=== PATIENT | female | born 1940 | race Caucasian/White ===

== ENCOUNTER 2017-03-20 22:11 | Inpatient (IN) | payer MEDICARE, BC ==
[2017-03-20] MEDS ORDERED: SODIUM CHLORIDE 0.9% 1,000 ML IV STA (22:44)
[2017-03-20] MEDS ORDERED: HYDROmorphone 2 MG/ML 1 ML SYRINGE IVP STA (22:45)
--- NOTE | 2017-03-20 22:56 | ED ---
General Adult HPI - General Chief complaint: Extremity Injury, Lower Stated complaint: Hip Fx Time Seen by Provider: 03/20/17 22:26 Source: patient, EMS, RN notes reviewed Mode of arrival: EMS Limitations: physical limitation - History of Present Illness Initial comments: Chief complaint and history of present illness this is a 76-year-old female except as a transfer from [facility]. The patient was at that facility in the ER earlier. She had fallen at home. X-rays were done including CAT scans etc. the patient was transferred here for further evaluation by orthopedics. Dr. Perry accepted the patient for evaluation and management for left hip fracture. - Related Data Allergies Allergy/AdvReac Type Severity Reaction Status Date / Time clarithromycin [From Biaxin] Allergy Unknown Verified 03/20/17 22:26 Iodinated Contrast- Oral and Allergy Unknown Verified 03/20/17 22:26 IV Dye Penicillins Allergy Unknown Verified 03/20/17 22:26 Review of Systems ROS Statement: Those systems with pertinent positive or pertinent negative responses have been documented in the HPI. review of systems. Patient's denying any headache or visual acuity changes no chest pain or shortness of breath she has discomfort to her left hip. For which she'll receive IV Dilaudid. No nausea no vomiting no diarrhea. She is alert and oriented. Past medical problems significant for hypertension and a DVT years ago she is not on any blood thinners this time. Her surgeries include previous hernia repair, cataract and cholecystectomy. Family history noncontributory. Nonsmoker non-alcohol user. Patient reports ALLERGIES to clarithromycin, eyes any contrast oral and IV dye and penicillins. ROS Other: All systems not noted in ROS Statement are negative. Past Medical History Past Medical History: Hypertension Additional Past Medical History / Comment(s): dvt History of Any Multi-Drug Resistant Organisms: None Reported Past Surgical History: Cholecystectomy, Hernia Repair Additional Past Surgical History / Comment(s): cataract Past Psychological History: Depression Smoking Status: Never smoker Past Alcohol Use History: None Reported Past Drug Use History: None Reported General Exam - General Exam Comments Initial Comments: General: The patient is awake and alert, transferred here from another facility because of a fractured left hip. Vital signs here show temperature 98.8 pulse 102 respiratory rate 18 pulse ox 90% room air blood pressure 192/88. All be given pain medication. Eye: Pupils are equal, round and reactive to light, extra-ocular movements are intact ; there is normal conjunctiva bilaterally. No signs of icterus. history of cataract surgery. Ears, nose, mouth and throat: patient states she's thirsty. She will be allowed to eat and drink until midnight. Neck: The neck is supple, no neck pain, no headache. Cardiovascular: There is a regular rate and rhythm. No murmur, rub or gallop is appreciated. Respiratory: Lungs are clear to auscultation, respirations are non-labored, breath sounds are equal. No wheezes, stridor, rales, or rhonchi. Gastrointestinal: Soft, non-distended, non-tender abdomen without masses or organomegaly noted. There is no rebound or guarding present. No CVA tenderness. Bowel sounds are unremarkable. Back: patient denies back pain. Musculoskeletal: neurovascular status to the feet intact. The patient has a known left hip fracture. Evaluated at another emergency room. X-rays and CAT scans performed at that facility of being bloated this time. Neurological: no focal or lateralizing findings. Skin: Skin is warm and dry and no rashes or lesions are noted. Psychiatric: Cooperative, denies depression. Limitations: physical limitation Course Vital Signs 03/20/17 03/20/17 22:17 23:19 Temperature 98.8 F Pulse Rate 102 H 98 Respiratory 18 16 Rate Blood Pressure 194/88 184/86 O2 Sat by Pulse 98 96 Oximetry Medical Decision Making - Medical Decision Making medical decision making; this is a 76-year-old female who is transferred from another facility because of a fractured left hip. She was accepted to this Hospital for further evaluation and management of the hip fracture by Dr. Perry.Labs show white count of 12 hemoglobin 12 hematocrit of 40. INR 1.1, BUN 13 creatinine 0.7 with a GFR greater than 60. Potassium is 4.1. Glucose 131. - Lab Data Result diagrams: 03/20/17 23:19 03/20/17 23:19 Lab Results 03/20/17 03/20/17 03/20/17 Range/Units 23:19 23:19 23:19 WBC 12.2 H (3.8-10.6) k/uL RBC 4.46 (3.80-5.40) m/uL Hgb 12.4 (11.4-16.0) gm/dL Hct 40.4 (34.0-46.0) % MCV 90.5 (80.0-100.0) fL MCH 27.8 (25.0-35.0) pg MCHC 30.7 L (31.0-37.0) g/dL RDW 15.3 (11.5-15.5) % Plt Count 160 (150-450) k/uL Neutrophils % 90 % Lymphocytes % 5 % Monocytes % 4 % Eosinophils % 0 % Basophils % 0 % Neutrophils # 11.0 H (1.3-7.7) k/uL Lymphocytes # 0.6 L (1.0-4.8) k/uL Monocytes # 0.5 (0-1.0) k/uL Eosinophils # 0.0 (0-0.7) k/uL Basophils # 0.0 (0-0.2) k/uL PT 10.5 (9.0-12.0) sec INR 1.1 (<1.2) Sodium 138 (137-145) mmol/L Potassium 4.1 (3.5-5.1) mmol/L Chloride 102 (98-107) mmol/L Carbon Dioxide 22 (22-30) mmol/L Anion Gap 14 mmol/L BUN 13 (7-17) mg/dL Creatinine 0.70 (0.52-1.04) mg/dL Est GFR (MDRD) Af Amer >60 (>60 ml/min/1.73 sqM) Est GFR (MDRD) Non-Af >60 (>60 ml/min/1.73 sqM) Glucose 131 H (74-99) mg/dL Calcium 9.1 (8.4-10.2) mg/dL Total Bilirubin 0.6 (0.2-1.3) mg/dL AST 49 H (14-36) U/L ALT 38 (9-52) U/L Alkaline Phosphatase 65 (38-126) U/L Total Protein 6.7 (6.3-8.2) g/dL Albumin 3.8 (3.5-5.0) g/dL Disposition Clinical Impression: Closed left hip fracture Disposition: ADMITTED IP TO THIS HOSP Condition: Serious Referrals: Tariq Parra MD [Primary Care Provider] - 1-2 days
[2017-03-20 23:29] LABS: Basophils % (A) 0 %; Eosinophils % (A) 0 %; HCT 40.4 % (34.0-46.0); HGB 12.4 gm/dL (11.4-16.0); Lymphocytes # (A) 0.6 k/uL (1.0-4.8); Lymphocytes % (A) 5 %; MCH 27.8 pg (25.0-35.0); MCHC 30.7 g/dL (31.0-37.0); MCV 90.5 fL (80.0-100.0); Mean Platelet Volume 7.3; Monocytes # (A) 0.5 k/uL (0-1.0); Monocytes % (A) 4 %; Neutrophils % (A) 90 %; Platelet Count 160 k/uL (150-450); RBC 4.46 m/uL (3.80-5.40); RDW 15.3 % (11.5-15.5); WBC 12.2 k/uL (3.8-10.6)
[2017-03-20 23:36] LABS: INR 1.1 (<1.2); Prothrombin Time 10.5 sec (9.0-12.0)
[2017-03-20 23:46] LABS: ALT 38 U/L (9-52); AST 49 U/L (14-36); Albumin 3.8 g/dL (3.5-5.0); Alkaline Phosphatase 65 U/L (38-126); Anion Gap 14 mmol/L; Blood Urea Nitrogen 13 mg/dL (7-17); Calcium 9.1 mg/dL (8.4-10.2); Carbon Dioxide 22 mmol/L (22-30); Chloride 102 mmol/L (98-107); Glucose 131 mg/dL (74-99); Potassium 4.1 mmol/L (3.5-5.1); Sodium 138 mmol/L (137-145); Total Bilirubin 0.6 mg/dL (0.2-1.3); Total Protein 6.7 g/dL (6.3-8.2)
[2017-03-21] MEDS ORDERED: NALOXONE 0.4 MG/ML 1 ML VIAL IV PRN (00:21)
[2017-03-21] MEDS ORDERED: ONDANSETRON 4 MG/2 ML VIAL IVP PRN ×2 (00:21→15:34)
[2017-03-21] MEDS: HYDROmorphone 0.5 MG/0.5 ML SYRINGE IVP PRN ×6 (01:11→22:25)
[2017-03-21 02:17] VITALS: BMI 25.0
[2017-03-21] MEDS ORDERED: PERMETHRIN 5% CREAM 60 GM TUBE TOPICAL ONE (03:18)
[2017-03-21] MEDS: SODIUM CHLORIDE 0.9% 1,000 ML IV SCH ×2 (03:20→18:13)
[2017-03-21] MEDS: PANTOPRAZOLE 40 MG/10 ML VIAL IV SCH (09:00)
[2017-03-21] MEDS ORDERED: LORazepam 2 MG/ML INJ IV SCH (09:00)
--- NOTE | 2017-03-21 09:40 | XR ---
EXAMINATION TYPE: XR Hip Complete LT , 3 VIEWS DATE OF EXAM ORDERED: 03/21/2017 HISTORY: hip fracture. COMPARISON: None. FINDINGS: There is an intertrochanteric fracture of the left hip with moderate angulation and foresh ortening. IMPRESSION: INTERTROCHANTERIC FRACTURE OF THE LEFT HIP. CODE A: INITIAL ENCOUNTER FOR CLOSED FRACTURE.
--- NOTE | 2017-03-21 10:51 | P.HPOR ---
History of Present Illness H&P Date: 03/21/17 Chief Complaint: Left hip fracture Patient is a 76-year-old female who was transferred down from [facility] to [facility] on 03/20/2017. Patient is currently staying at her daughter's house, and she went on to the garage to grab something out of the fridge when she tripped over a step and fell directly onto that left hip. The family did find her, and she was brought to [facility] initially. I was contacted by Gabbieserjio Dougherty's emergency room physician regarding the possible transfer, we did accept the transfer. Patient was then admitted under orthopedic care with proper specialties consult. Patient was evaluated today at bedside, she was rather agitated and was difficult to achieve a review of systems and past medical history. I was able to talk to the daughter today at bedside and she helped confirm further questions. Patient's daughter states that she normally lives alone, but has been with her the last week and a half. Patient does have a lot of family in the area that does check up on her. She states that she has rather mobile, she does utilize a cane or a walker when out of the house. There's been no recent surgery on the left lower extremity. Patient is a relatively healthy individual. There is a history of factor V Leiden disease, she does not currently see crts. She does have a primary care doctor she is on a regular basis, and does see a crts and Bobo Dougehrty on a regular basis. At bedside today, patient does complain of pain in the left hip with any type of motion. She denies any pain of the right lower extremity, bilateral upper extremities. She denies any new onset cervical, thoracic or lumbar pain. There is a bruise over the left eyelid, daughter states this is from the fall. She did have a computed tomography scan done of the head and neck with showed no acute processes. Review of Systems Constitutional: Reports as per HPI Past Medical History Past Medical History: Deep Vein Thrombosis (DVT), Hypertension Additional Past Medical History / Comment(s): dvt History of Any Multi-Drug Resistant Organisms: None Reported Past Surgical History: Cholecystectomy, Hernia Repair Additional Past Surgical History / Comment(s): cataract Past Psychological History: Depression Smoking Status: Never smoker Past Alcohol Use History: None Reported Past Drug Use History: None Reported Medications and Allergies Home Medications Medication Instructions Recorded Confirmed Type Colon Health 1 cap PO W/LUNCH 03/21/17 03/21/17 History Echinacea 400 mg PO BID@1200,1700 03/21/17 03/21/17 History Fexofenadine HCl [Patricia Allergy] 180 mg PO HS 03/21/17 03/21/17 History LORazepam [Ativan] 1 mg PO TID 03/21/17 03/21/17 History Olmesartan [Benicar] 20 mg PO W/BRKFST 03/21/17 03/21/17 History Omeprazole [PriLOSEC] 20 mg PO W/BRKFST 03/21/17 03/21/17 History Sertraline [Zoloft] 100 mg PO AC-BID 03/21/17 03/21/17 History busPIRone HCl [Buspar] 5 mg PO W/LUNCH 03/21/17 03/21/17 History Allergies Allergy/AdvReac Type Severity Reaction Status Date / Time clarithromycin [From Biaxin] Allergy Unknown Verified 03/20/17 22:26 Iodinated Contrast- Oral and Allergy Unknown Verified 03/20/17 22:26 IV Dye Penicillins Allergy Unknown Verified 03/20/17 22:26 Physical Examination Left lower extremity: No obvious open lesions or sores present. There are a few areas of ecchymosis noted over the knee and mac no obvious effusion present over the knee, no significant tenderness with palpation surrounding the knee The calf is soft, no tenderness with palpation She is able to wiggle the toes no difficulty, her dorsal pedis pulses 2+ Logroll maneuver the hip reproduces pain, she is tender over the greater trochanter with palpation Gen. exam: Patient was noted to have multiple skin lesions throughout her torso and extremities, please see the chart for picture and verbal description Results - Labs Labs: Abnormal Lab Results - Last 24 Hours (Table) 03/20/17 03/20/17 Range/Units 23:19 23:19 WBC 12.2 H (3.8-10.6) k/uL MCHC 30.7 L (31.0-37.0) g/dL Neutrophils # 11.0 H (1.3-7.7) k/uL Lymphocytes # 0.6 L (1.0-4.8) k/uL Glucose 131 H (74-99) mg/dL AST 49 H (14-36) U/L H & H 03/20/17 Range/Units 23:19 Hgb 12.4 (11.4-16.0) gm/dL Hct 40.4 (34.0-46.0) % Coagulation 03/20/17 Range/Units 23:19 INR 1.1 (<1.2) Result Diagrams: 03/20/17 23:19 03/20/17 23:19 - Diagnostic results Hip x-ray: report reviewed, image reviewed Assessment and Plan Plan: Imaging: Patient did arrive with a CD with multiple images, there was a CT without contrast of the hip and pelvis, there were no x-rays. I did order a x- ray of the left hip, images demonstrate a severely displaced left intertrochanteric hip fracture Assessment: 1. Displaced left intertrochanteric hip fracture 2. Status post fall from standing 3. Other medical comorbidities Plan: I was able to discuss this case, including both physical exam findings and imaging studies with Dr. Lofton my attending. Our plan at this point is to proceed with surgical intervention, we would like to do this on 03/21/2017. Plan will be to proceed with an open reduction internal fixation with compression screw, there is the possibility of doing a closed reduction with intramedullary nailing. The risk and benefits of the procedure were discussed the patient and daughter today, this including but not excluding infection, blood loss, pain and stiffness, development of blood clots, need for subsequent surgery, mortality. They're in good understanding and would like to proceed Nothing by mouth Nonweightbearing left lower extremity GI and DVT prophylaxis, we'll discuss with medicine proper medication use after surgery, we'll take any consideration or factor V disease Medical clearance Pain control Further recommendations to follow Time with Patient: Less than 30
[2017-03-21] MEDS ORDERED: HYDROmorphone 0.5 MG/0.5 ML SYRINGE IVP STA (13:13)
[2017-03-21] MEDS: ACETAMINOPHEN IV (For NPO) 1,000 MG in EMPTY BAG 1 BAG IVPB SCH ×2 (13:17→20:05)
[2017-03-21 13:51] LABS: Appearance,Urine Clear (Clear); Bilirubin,Urine Negative (Negative); Blood,Urine Small (Negative); Color,Urine Yellow; Glucose,Urine (UA) Negative (Negative); Ketones,Urine Negative (Negative); Leukocyte Esterase,Urine Negative (Negative); Mucus,Urine Few /hpf; Nitrite,Urine Negative (Negative); PH, Urine 5.5 (5.0-8.0); Protein,Urine Trace (Negative); RBC,Urine 3 /hpf (0-5); Specific Gravity,Urine 1.018 (1.001-1.035); Urobilinogen,Urine <2.0 mg/dL (<2.0); WBC,Urine 2 /hpf (0-5)
[2017-03-21] MEDS ORDERED: PHENYLEPHRINE-0.9% NACL SYG 1 MG/10 ML SYRINGE ONE (14:28)
[2017-03-21] MEDS ORDERED: KETAMINE 10 MG/ML 20 ML VIAL ONE (14:28)
--- NOTE | 2017-03-21 14:34 | XR ---
EXAMINATION TYPE: XR chest 1V portable DATE OF EXAM: 03/21/2017 COMPARISON: None INDICATION: Presurgical clearance TECHNIQUE: Single frontal view of the chest is obtained. FINDINGS: The heart size is normal. The pulmonary vasculature is normal. The lungs are clear. IMPRESSION: 1. No acute pulmonary process.
[2017-03-21] MEDS ORDERED: IV FLUID CONTINUATION 900 ML IV ONE (14:50)
[2017-03-21] MEDS ORDERED: CLINDAMYCIN 600 MG in SODIUM CHLORIDE 0.9% 1,000 ML IRRIGATION ONE (14:50)
[2017-03-21] MEDS ORDERED: SODIUM CHLORIDE 0.9% 50 ML with CLINDAMYCIN 600 MG IVPB ONE ×2 (14:51)
--- NOTE | 2017-03-21 14:57 | CONS ---
CONSULTATION REASON FOR CONSULTATION: Advice regarding hypertension, DVT, and other medical issues requested by Dr. Lofton. HISTORY OF PRESENT ILLNESS: This 76-year-old woman with a past history of DVT, hypertension, history of cholecystectomy, hernia repair being followed by Dr. Parra in the outpatient setting apparently had a fall and suffered a left hip fracture. The patient was referred to [facility]. patient admitted for further evaluation and treatment. There is no history of fever, rigors. No headache, loss of consciousness or seizures. The patient was noted to have some suicidal ideations. Psychiatric consultation has been obtained. The patient running some minimal fever. Chest x-ray showed no acute abnormality. UA is unremarkable as well. PAST MEDICAL HISTORY: History of DVT, hypertension, history of cholecystectomy, hernia repair. MEDICATIONS PRIOR TO ADMISSION: 1. Fexofenadine, Patricia 180 mg q.h.s. 2. BuSpar 5 mg p.o. with lunch. 3. Echinacea 400 mg p.o. b.i.d. 4. Colon Health 1 with lunch. 5. Prilosec 20 mg with breakfast. 6. Benicar 20 mg with breakfast. 7. Ativan 1 mg p.o. t.i.d. 8. Zoloft 100 mg p.o. b.i.d. ALLERGIES: CLARITHROMYCIN, IODINATED CONTRAST, METHYLPREDNISONE, ZOFRAN AND PENICILLIN. FAMILY HISTORY: No history of heart disease or strokes family. SOCIAL HISTORY: No history of smoking, no history of alcohol. REVIEW OF SYSTEMS: ENT: No diminished hearing or vision. CARDIOVASCULAR: No angina or palpitations. RESPIRATORY: No cough or hemoptysis. GI: No nausea. : No dysuria. NERVOUS SYSTEM: No numbness or tingling. ALLERGY/IMMUNOLOGY: No asthma or hayfever. MUSCULOSKELETAL: As mentioned earlier. HEMATOLOGY/ONCOLOGY: No history of anemia. ENDOCRINE: No history of diabetes or hypothyroidism. CONSTITUTIONAL As mentioned earlier. DERMATOLOGY: Negative. RHEUMATOLOGY: Negative. PSYCHIATRY As mentioned earlier. EXAMINATION: Alert, oriented x3. Pulse 87, blood pressure 170/75, respiration 20, temperature 98.9, pulse ox 94% room air. HEENT: Conjunctivae normal. Oral mucosa moist. NECK: No jugular venous distention. No lymph node enlargement. CARDIOVASCULAR: S1, S2. RESPIRATORY: Breath sounds diminished in the bases. A few rhonchi, no crackles. ABDOMEN: Soft, nontender. No mass palpable. LEGS: No edema, no swelling. NERVOUS SYSTEM: Higher functions as mentioned earlier, moves all 4 limbs, no focal motor deficits. LYMPHATICS: No lymphadenopathy in the neck, axillae or groin. SKIN: No ulcers, rash, bleeding. LAB STUDIES: WBC 12, hemoglobin 12.4. UA noted. ASSESSMENT: 1. Status post left hip fracture. 2. Increased WBC. 3. Possibly reactive. 4. History of DVT. 5. Hypertension. 6. History of cholecystectomy. 7. History of hernia repair. 8. History of depression. RECOMMENDATIONS AND DISCUSSION: In this 76-year-old woman who presented with multiple complex medical issues, will monitor the patient closely. Continue the current management and symptomatic treatment. Will initiate home medications. Incentive spirometry. Patient is medically stable for surgery. Cleared for surgery. I would also recommend empiric antibiotics. DVT prophylaxis. We will follow the patient closely and psychiatric consultation has been sought. The patient may be asked to follow with Dr. Parra, who is the primary physician. We will follow the patient closely. Thank you Dr. Lofton, for letting us participate in the care. MMODL / IJN: [id number] /
[2017-03-21] MEDS ORDERED: LEVOFLOXACIN 500MG-D5W PMX 500 MG in DEXTROSE/WATER 1 100ML.BAG IVPB SCH (15:00)
[2017-03-21] MEDS ORDERED: HYDROcodone/APAP 5-325MG 1 EACH TAB PO PRN ×2 (15:34)
[2017-03-21] MEDS ORDERED: MAGNESIUM HYDROXIDE 2,400 MG/10 ML CUP PO PRN (15:34)
--- NOTE | 2017-03-21 15:36 | P.OP ---
Date of Procedure: 03/21/17 Preoperative Diagnosis: Displaced left intertrochanteric femur fracture Postoperative Diagnosis: Same Procedure(s) Performed: Open reduction and internal fixation left intertrochanteric femur fracture Implants: Gurpreet free lock 135, 3-hole, 100 mm compression screw Anesthesia: spinal Surgeon: Mark Lofton [employer]1: Fabrice Mac Estimated Blood Loss (ml): 25 Pathology: none sent Condition: stable Disposition: PACU Indications for Procedure: The patient is a 76-year-old female who presents after falling injuring her left hip. Upon evaluation she was noted have a displaced left intertrochanteric femur fracture. A discussion of the risks and benefits of operative intervention was made with patient and her family. She opted to proceed. Operative risks to include infection, neurovascular injury, development of blood clots, possible development of nonunion, possible development of malunion and need for subtotal procedures was discussed. Informed consent was obtained. Operative Findings: As below Description of Procedure: The patient was brought to the operating room, and after induction of spinal anesthesia was placed supine on the fracture table. The fracture was reduced with longitudinal traction and internal rotation of the left leg. This was verified on the AP and lateral views with fluoroscopy. The left hip was then prepped and draped in normal fashion. A 10 cm incision was then made starting distal to the greater trochanter in line with the femoral shaft. The skin and subcutaneous tissues were divided sharply. Electrocautery was used for hemostasis. The fascia gregory was split in line with the skin incision. The vastus lateralis fascia was split along its posterior margins. The muscle fibers were bluntly dissected anteriorly. A threaded guidepin was then placed into the center-center portion of the femoral head and neck verified on the AP and lateral views to within 5 mm of the articular surface. A triple reamer was used to a depth of 100 mm. A 100 mm compression screw was then inserted. Again positioning was verified with fluoroscopy on the AP and lateral views. A 3 hole compression plate was then attached with 4.5 mm cortical screws of the appropriate length. A short compression screw was inserted in the traction was released. Final fluoroscopic views to include AP and lateral views showed adequate placement of the implant and reduction of the fracture. The wound was irrigated with normal saline. The fascia gregory was closed with running 0 Vicryl suture. Subcutaneous tissues were reapproximated with interrupted 2-0 Vicryl sutures. The skin was reapproximated with julio. A sterile dressing was applied. The patient was awoken from sedation and transferred to recovery room in fair condition. Blood loss was estimated at 25 mL. No complications were incurred. Sponge and needle counts were correct at the end of the case.
--- NOTE | 2017-03-21 16:19 | FL ---
Fluoroscopy INDICATION: Pain FINDINGS: Fluoroscopy time: 40 seconds. Images obtained: 2. IMPRESSIONS: 1. Documentation of fluoroscopy.
[2017-03-21] MEDS ORDERED: ECHINACEA 400 MG PO SCH (17:00)
[2017-03-21] MEDS: HEPARIN SODIUM,PORCINE 5,000 UNIT/ML 1 ML VIAL SQ SCH ×2 (17:47→22:21)
[2017-03-21] MEDS: LORazepam 1 MG TAB PO SCH ×2 (18:13→22:21)
[2017-03-21] MEDS ORDERED: OPTH OPHTHALMIC ONE (18:45)
[2017-03-21] MEDS ORDERED: DORZOLAMIDE 2% OPHTHALMIC ONE (18:45)
[2017-03-21] MEDS: CLINDAMYCIN 900 MG in DEXTROSE 5% IN WATER 50 ML IVPB SCH ×2 (22:17)
[2017-03-21] MEDS: LORATADINE 10 MG TAB PO SCH (22:21)
[2017-03-21] MEDS: SERTRALINE 100 MG TAB PO SCH (22:21)
[2017-03-21] MEDS: SENNOSIDES-DOCUSATE SODIUM 1 EACH TAB PO SCH (22:22)
[2017-03-22] MEDS: SODIUM CHLORIDE 0.9% 1,000 ML IV SCH ×2 (01:40→14:31)
[2017-03-22] MEDS: CLINDAMYCIN 900 MG in DEXTROSE 5% IN WATER 50 ML IVPB SCH ×2 (03:04)
[2017-03-22 06:55] LABS: Basophils % (A) 0 %; Eosinophils # (A) 0.3 k/uL (0-0.7); Eosinophils % (A) 4 %; HCT 38.5 % (34.0-46.0); HGB 11.6 gm/dL (11.4-16.0); Hypochromasia Slight; Lymphocytes # (A) 0.5 k/uL (1.0-4.8); Lymphocytes % (A) 7 %; MCH 27.9 pg (25.0-35.0); Mean Platelet Volume 7.2; Monocytes # (A) 0.4 k/uL (0-1.0); Monocytes % (A) 6 %; Neutrophils % (A) 82 %; Platelet Count 122 k/uL (150-450); RBC 4.14 m/uL (3.80-5.40); RDW 15.4 % (11.5-15.5); WBC 7.3 k/uL (3.8-10.6)
[2017-03-22] MEDS: HYDROmorphone 0.5 MG/0.5 ML SYRINGE IVP PRN ×3 (07:04→19:52)
[2017-03-22] MEDS: traMADol 50 MG TAB PO PRN ×3 (07:05→19:52)
[2017-03-22 07:28] LABS: Anion Gap 9 mmol/L; Blood Urea Nitrogen 18 mg/dL (7-17); Calcium 8.1 mg/dL (8.4-10.2); Carbon Dioxide 22 mmol/L (22-30); Chloride 105 mmol/L (98-107); Glucose 104 mg/dL (74-99); Potassium 4.1 mmol/L (3.5-5.1); Sodium 136 mmol/L (137-145)
[2017-03-22] MEDS ORDERED: PANTOPRAZOLE 40 MG TABLET PO SCH (07:30)
[2017-03-22] MEDS: SERTRALINE 100 MG TAB PO SCH ×2 (08:15→17:06)
[2017-03-22] MEDS: LOSARTAN 50 MG TAB PO SCH (08:15)
[2017-03-22] MEDS: HEPARIN SODIUM,PORCINE 5,000 UNIT/ML 1 ML VIAL SQ SCH ×2 (08:19→22:27)
[2017-03-22] MEDS: PANTOPRAZOLE 40 MG/10 ML VIAL IV SCH (08:19)
[2017-03-22] MEDS: LORazepam 1 MG TAB PO SCH ×3 (08:40→22:27)
[2017-03-22] MEDS ORDERED: HYDROcodone/APAP 7.5-325MG 1 EACH TAB PO PRN (10:08)
[2017-03-22] MEDS: busPIRone HCl 5 MG TAB PO SCH (12:50)
--- NOTE | 2017-03-22 15:25 | P.PN ---
Subjective Progress Note Date: 03/22/17 Principal diagnosis: Status post ORIF left IT hip fracture Patient seen today resting in her hospital bed, she appears comfortable. She has multiple family members at bedside today. She was able to get up to the chair and ambulate minimally, she did have some increasing pain. She denies any headaches, lightheadedness, chest pain or shortness of breath. Objective - Vital Signs Vital signs: Vital Signs Temp 100.9 F H 03/22/17 08:42 Pulse 95 03/22/17 08:42 Resp 16 03/22/17 08:42 BP 124/67 03/22/17 08:42 Pulse Ox 95 03/22/17 08:42 Intake & Output 03/21/17 03/22/17 03/22/17 18:59 06:59 18:59 Intake Total 1195.5 603 Output Total 350 650 Balance 845.5 -47 Weight 72.575 kg Intake: IV 555.5 Intake, IV Titration 640 603 Amount Sodium Chloride 0.9% 1, 300 000 ml @ 75 mls/hr IV . [id number] STA Rx#:[id number] Sodium Chloride 0.9% 1, 640 303 000 ml @ 80 mls/hr IV . [id number] AMRITA Rx#:[id number] Output: Urine 325 650 Estimated Blood Loss 25 Other: Voiding Method Indwelling Catheter Indwelling Catheter Indwelling Catheter - Exam Left lower extremity: Incision is clean, dry, and intact. Torito are in good position. There is minimal soft tissue swelling and ecchymosis surrounding the medial and lateral aspects of the incision. Calf is soft, no tenderness with palpation. Plantar flexion, dorsiflexion, EHL, FHL are intact. Sensory exam to light touch throughout the extremity is intact, dorsal pedis pulses 2+. - Labs CBC & Chem 7: 03/22/17 06:34 03/22/17 06:34 Labs: Abnormal Lab Results - Last 24 Hours (Table) 03/22/17 03/22/17 Range/Units 06:34 06:34 MCHC 30.0 L (31.0-37.0) g/dL Plt Count 122 L (150-450) k/uL Lymphocytes # 0.5 L (1.0-4.8) k/uL Sodium 136 L (137-145) mmol/L BUN 18 H (7-17) mg/dL Glucose 104 H (74-99) mg/dL Calcium 8.1 L (8.4-10.2) mg/dL Microbiology - Last 24 Hours (Table) 03/21/17 13:30 Urine Culture - Preliminary Urine,Catheterized Group D Enterococcus Assessment and Plan Plan: Assessment: 1. Postop day #1 status post ORIF left IT hip fracture Plan: 1. Pain control, continue oral medication 2. Continue work with physical therapy, weight-bear as tolerated with walker 3. GI and DVT prophylaxis, continue use of heparin subcu 4. Daily dressing changes 5. Medical recommendations 6. Discharge planning: Hopeful discharge to rehab in the next day or 2 Time with Patient: Less than 30
[2017-03-22] MEDS: LEVOFLOXACIN 500 MG TAB PO SCH (18:03)
--- NOTE | 2017-03-22 19:14 | P.CN ---
Psychiatric Consult - . Consult date: 03/22/17 Consult:: Identification: Patient is a 76-year-old female who is admitted for a left hip fracture. Reason for Consult: Consultation was requested for suicidal thoughts. History of Present Illness: Patient states that she fell while she was at daughter's house and was admitted for repair of her left hip fracture. Patient states that she was talking about wanting to when she was admitted because she was in a lot of pain. Patient states that she's been treated for depression on and off for over 40 years. She states that she has been on multiple medications in the past and she is unaware of what all of those medications are. She is currently taking Zoloft 100 mg twice a day as well as Ativan 1 mg 3 times a day and states that her primary care physician has been prescribing these for her and she was unable to tell me which psychiatrists she has seen in the past. She states that the Zoloft has been working well for her until her in August 2016 she states that at times she is more depressed. She states that she has no current suicidal thoughts and because of the pain with the fracture had thoughts from time to time of wanting to but states that she does not want to because of her children and a great grandchild that is expected soon. Patient denied any prior suicide attempts. She states that she has been living alone but was spending the last week with her daughter. She reports that her son lives next door to her. She reported no side effects from the Zoloft. Patient did not endorse any prior manic symptoms states that her depressive symptoms of been well controlled with the Zoloft at the current dose. She did not endorse any anxiety symptoms currently but states she's been anxious in the past and that the Ativan has been helpful for that. Patient I will discontinue suicide precautions at this time as the patient is not actively suicidal and states that she does not wish to . for depression on and off for 40 years but is unaware of what her prior medications were ordered which psychiatrists she made seen in the past. Past Medical/Surgical History: Patient has a history of DVT, hypertension status post cholecystectomy status post hernia repair and is currently status post repair of her left hip fracture Family History: Patient states that her son is being treated for depression and there is no family history of any alcohol or drug use. Social History: Patient states that her in August 2016 and she has 4 children all of whom live in [place]. She has 3 daughters and 1 son. She states her was a melo all of his life. She states she has 7 grandchildren and 1 great grandchild is expected soon. Patient reports that she has been living alone except for the last week when she went to live with her daughter. Substance Use History: Patient denies any alcohol or substance abuse history currently or in the past. Legal History: Patient denies Mental status: Appearance/Attitude: Patient is in her hospital bed states that she is still uncomfortable and in some pain, she made good eye contact and was cooperative. Behavior: Patient does not exhibit any psychomotor agitation or retardation. Speech/Language: Patient's speech was spontaneous, she spoke in a soft voice at times and she was coherent. Thought Process: Patient was goal-directed but was distracted during the interview with her pain at times, there is no evidence of loose associations or flight of ideas. Thought Content: Patient denied any auditory or visual hallucinations and no paranoid or delusional ideation was elicited. Patient states that she's had depression for a number of years and has been treated with Zoloft for the last 15 years which she says has worked well until the of her in August 2016. She states that she has never made any suicide attempts in the past and states that she was making thoughts of wanting to be because of the acute pain that she was in on admission. Patient states that she is still in some pain but states that she is eating fairly well. Suicidal/Homicidal Ideation: Patient denied any current suicidal or homicidal ideation. Sensorium/Cognition: Patient was alert and oriented to person, location, and time, her recent and remote memory were grossly intact. Mood/Affect: Patient's mood was slightly depressed secondary to the pain and the loss of her and her affect is appropriate. Insight/Judgment: Patient's insight and judgment are fair. Assessment: Patient was seen and interviewed in her room no family members were present in the chart was reviewed. Patient states that she was in a lot of pain when she was admitted and asked why she made the statement that she wanted to but states that she has no current suicidal ideation and has no prior history of suicide attempts. Patient states that she does not wish to as she is expecting her first great grandchild. Patient states her in August 2016 and this is been difficult for her to cope with. She states that she's been treated for depression for 40 years and has for the last 15 years been on Zoloft 100 mg twice a day. She states she also takes Ativan for anxiety 1 mg 3 times a day. Patient was unable to tell me which psychiatrists she is seen in the past but she has 4 prior psychiatric admissions number of years ago she states. Patient states that she feels the Zoloft has been working well for her until she fractured her hip and is been in pain and she states that she is been coping fairly well with the of her . Diagnosis: Major depressive disorder, recurrent Plan: Would continue Zoloft and Ativan as she has been prescribed. Patient's family was not present during the interview and patient may need a referral for outpatient counseling should be of her continue to be problematic for her. We will discontinue suicide precautions as patient is not currently suicidal and states that she has no wish to . I will sign off the case present hesitate to contact me if there are any questions or concerns. 03/22/17 19:02 03/22/17 19:14
[2017-03-22] MEDS: HYDROcodone/APAP 7.5-325MG 1 EACH TAB PO PRN (19:27)
[2017-03-22] MEDS: SENNOSIDES-DOCUSATE SODIUM 1 EACH TAB PO SCH (22:27)
[2017-03-22] MEDS: LORATADINE 10 MG TAB PO SCH (22:27)
[2017-03-22] MEDS: DORZOLAMIDE 2% OPHTHALMIC SCH (22:28)
--- NOTE | 2017-03-22 23:33 | PN ---
PROGRESS NOTE DATE OF SERVICE: 03/22/2017. INTERVAL HISTORY: This 76-year-old woman who was admitted after left hip fracture, underwent open reduction internal fixation of the left intertrochanteric femur fracture by Dr. Lofton. No chest pain. No palpitations. No fever. PHYSICAL EXAM: Alert and oriented x3. Pulse 78, blood pressure 140/70, respiration 20, temperature 99.2, pulse ox 98% on 2 L. HEENT: Conjunctivae normal. NECK: No JVD. CARDIOVASCULAR: S1 and S2 muffled. LUNGS: Breath sounds diminished at the bases. No rhonchi, no crackles. ABDOMEN: Soft, nontender. LEGS: Status post surgery. NERVOUS SYSTEMS: No focal deficits. LABS: CBC within normal. Platelets are 122. Sodium 136. ASSESSMENT: 1. Left hip fracture status post open reduction and internal fixation. 2. Increased WBC. 3. Thrombocytopenia. 4. History of deep venous thrombosis. 5. Hypertension. 6. Fever, improved. 7. History of cholecystectomy. 8. History of hernia repair. 9. History of depression. RECOMMENDATION AND DISCUSSION: Recommend to continue current management and symptomatic treatment. Otherwise I would recommend repeat labs on daily basis. We will continue to monitor. PT, OT evaluation, possible ECF rehab. Further recommendations to follow. MMODL / IJN: [id number] /
[2017-03-23] MEDS: SODIUM CHLORIDE 0.9% 1,000 ML IV SCH ×2 (01:22→16:16)
[2017-03-23] MEDS: traMADol 50 MG TAB PO PRN ×3 (01:23→18:53)
[2017-03-23] MEDS: HYDROmorphone 0.5 MG/0.5 ML SYRINGE IVP PRN ×2 (01:24→09:48)
[2017-03-23 02:48] VITALS: RESP 16
[2017-03-23 07:54] LABS: Basophils % (A) 0 %; Eosinophils # (A) 0.3 k/uL (0-0.7); Eosinophils % (A) 3 %; HCT 36.7 % (34.0-46.0); HGB 11.2 gm/dL (11.4-16.0); Hypochromasia Slight; Lymphocytes # (A) 0.6 k/uL (1.0-4.8); Lymphocytes % (A) 8 %; MCH 28.2 pg (25.0-35.0); MCHC 30.6 g/dL (31.0-37.0); MCV 92.3 fL (80.0-100.0); Mean Platelet Volume 8.1; Monocytes # (A) 0.4 k/uL (0-1.0); Monocytes % (A) 5 %; Neutrophils # (A) 6.4 k/uL (1.3-7.7); Neutrophils % (A) 82 %; Platelet Count 140 k/uL (150-450); RBC 3.97 m/uL (3.80-5.40); RDW 15.4 % (11.5-15.5); WBC 7.8 k/uL (3.8-10.6)
[2017-03-23 08:10] LABS: Anion Gap 9 mmol/L; Blood Urea Nitrogen 21 mg/dL (7-17); Calcium 8.6 mg/dL (8.4-10.2); Carbon Dioxide 26 mmol/L (22-30); Chloride 102 mmol/L (98-107); Glucose 106 mg/dL (74-99); Potassium 3.9 mmol/L (3.5-5.1); Sodium 137 mmol/L (137-145)
[2017-03-23] MEDS: HYDROcodone/APAP 7.5-325MG 1 EACH TAB PO PRN ×2 (09:49→18:52)
[2017-03-23] MEDS: PANTOPRAZOLE 40 MG TABLET PO SCH (09:56)
[2017-03-23] MEDS: SERTRALINE 100 MG TAB PO SCH ×2 (09:56→21:41)
[2017-03-23] MEDS: LOSARTAN 50 MG TAB PO SCH (09:56)
[2017-03-23] MEDS: DORZOLAMIDE 2% OPHTHALMIC SCH ×2 (09:58→14:52)
[2017-03-23] MEDS: RIVAROXABAN 10 MG TAB PO SCH (09:58)
[2017-03-23] MEDS: LORazepam 1 MG TAB PO SCH ×3 (10:03→21:41)
[2017-03-23] MEDS: busPIRone HCl 5 MG TAB PO SCH (13:36)
--- NOTE | 2017-03-23 15:32 | P.PN ---
Subjective Progress Note Date: 03/23/17 Principal diagnosis: Status post ORIF left IT hip fracture Patient seen today resting in her hospital bed, she appears comfortable. She denies any headaches, lightheadedness, chest pain or shortness of breath. Objective - Vital Signs Vital signs: Vital Signs Temp 97.9 F 03/23/17 15:18 Pulse 78 03/23/17 15:18 Resp 16 03/23/17 15:18 BP 130/66 03/23/17 15:18 Pulse Ox 94 L 03/23/17 15:18 Intake & Output 03/22/17 03/23/17 03/23/17 18:59 06:59 18:59 Intake Total 500 480 Output Total 1050 Balance 500 -570 Weight 72.575 kg Intake: Oral 500 480 Output: Urine 1050 Other: Voiding Method Indwelling Catheter Indwelling Catheter - Exam Left lower extremity: Incision is clean, dry, and intact. [place] are in good position. There is minimal soft tissue swelling and ecchymosis surrounding the medial and lateral aspects of the incision. Calf is soft, no tenderness with palpation. Plantar flexion, dorsiflexion, EHL, FHL are intact. Sensory exam to light touch throughout the extremity is intact, dorsal pedis pulses 2+. - Labs CBC & Chem 7: 03/23/17 07:04 03/23/17 07:04 Labs: Abnormal Lab Results - Last 24 Hours (Table) 03/23/17 03/23/17 Range/Units 07:04 07:04 Hgb 11.2 L (11.4-16.0) gm/dL MCHC 30.6 L (31.0-37.0) g/dL Plt Count 140 L (150-450) k/uL Lymphocytes # 0.6 L (1.0-4.8) k/uL BUN 21 H (7-17) mg/dL Glucose 106 H (74-99) mg/dL Microbiology - Last 24 Hours (Table) 03/21/17 13:30 Urine Culture - Final Urine,Catheterized Enterococcus faecalis 03/21/17 18:00 Blood Culture - Preliminary Blood No Growth after 24 hours Assessment and Plan Plan: Assessment: 1. Postop day #2 status post ORIF left IT hip fracture Plan: 1. Pain control, continue oral medication 2. Continue work with physical therapy, weight-bear as tolerated with walker 3. GI and DVT prophylaxis, continue use of heparin subcu 4. Daily dressing changes 5. Medical recommendations 6. Discharge planning: Plan for discharge to rehab tomorrow Time with Patient: Less than 30
[2017-03-23] MEDS: LEVOFLOXACIN 500 MG TAB PO SCH (18:49)
[2017-03-23] MEDS: LORATADINE 10 MG TAB PO SCH (21:41)
[2017-03-23] MEDS: SENNOSIDES-DOCUSATE SODIUM 1 EACH TAB PO SCH (21:42)
[2017-03-24] MEDS: SODIUM CHLORIDE 0.9% 1,000 ML IV SCH ×2 (04:13→16:28)
[2017-03-24] MEDS: LORazepam 1 MG TAB PO SCH ×2 (07:34→15:37)
[2017-03-24] MEDS: traMADol 50 MG TAB PO PRN (07:34)
[2017-03-24] MEDS: RIVAROXABAN 10 MG TAB PO SCH (07:35)
[2017-03-24] MEDS: LOSARTAN 50 MG TAB PO SCH (07:35)
[2017-03-24] MEDS: SERTRALINE 100 MG TAB PO SCH (07:35)
[2017-03-24] MEDS: PANTOPRAZOLE 40 MG TABLET PO SCH (07:36)
[2017-03-24 07:41] LABS: Basophils % (A) 0 %; Eosinophils # (A) 0.3 k/uL (0-0.7); Eosinophils % (A) 4 %; HCT 35.2 % (34.0-46.0); HGB 10.4 gm/dL (11.4-16.0); Hypochromasia Moderate; Lymphocytes # (A) 0.8 k/uL (1.0-4.8); Lymphocytes % (A) 11 %; MCH 27.7 pg (25.0-35.0); MCHC 29.5 g/dL (31.0-37.0); MCV 93.7 fL (80.0-100.0); Mean Platelet Volume 7.4; Monocytes # (A) 0.4 k/uL (0-1.0); Monocytes % (A) 6 %; Neutrophils # (A) 5.7 k/uL (1.3-7.7); Neutrophils % (A) 77 %; Platelet Count 165 k/uL (150-450); RBC 3.76 m/uL (3.80-5.40); RDW 15.6 % (11.5-15.5); WBC 7.4 k/uL (3.8-10.6)
[2017-03-24 08:05] LABS: Anion Gap 9 mmol/L; Blood Urea Nitrogen 17 mg/dL (7-17); Calcium 8.4 mg/dL (8.4-10.2); Carbon Dioxide 26 mmol/L (22-30); Chloride 103 mmol/L (98-107); Glucose 102 mg/dL (74-99); Potassium 4.1 mmol/L (3.5-5.1); Sodium 138 mmol/L (137-145)
[2017-03-24] MEDS: HYDROcodone/APAP 7.5-325MG 1 EACH TAB PO PRN ×2 (09:48→15:05)
--- NOTE | 2017-03-24 10:06 | P.PN ---
Subjective Progress Note Date: 03/24/17 Principal diagnosis: Status post ORIF left IT hip fracture Patient seen today resting in her hospital bed, she appears comfortable. She denies any headaches, lightheadedness, chest pain or shortness of breath. Objective - Vital Signs Vital signs: Vital Signs Temp 97.7 F 03/24/17 07:31 Pulse 62 03/24/17 07:31 Resp 16 03/24/17 07:31 BP 150/77 03/24/17 07:31 Pulse Ox 100 03/24/17 07:31 Intake & Output 03/23/17 03/24/17 03/24/17 18:59 06:59 18:59 Intake Total 500 Output Total 250 Balance 250 Intake: Oral 500 Output: Urine 250 Uretheral (Petit) 250 Other: # Voids 3 # Bowel Movements 1 - Exam Left lower extremity: Incision is clean, dry, and intact. [place] are in good position. There is minimal soft tissue swelling and ecchymosis surrounding the medial and lateral aspects of the incision. Calf is soft, no tenderness with palpation. Plantar flexion, dorsiflexion, EHL, FHL are intact. Sensory exam to light touch throughout the extremity is intact, dorsal pedis pulses 2+. - Labs CBC & Chem 7: 03/24/17 06:58 03/24/17 06:58 Labs: Abnormal Lab Results - Last 24 Hours (Table) 03/24/17 03/24/17 Range/Units 06:58 06:58 RBC 3.76 L (3.80-5.40) m/uL Hgb 10.4 L (11.4-16.0) gm/dL MCHC 29.5 L (31.0-37.0) g/dL RDW 15.6 H (11.5-15.5) % Lymphocytes # 0.8 L (1.0-4.8) k/uL Glucose 102 H (74-99) mg/dL Microbiology - Last 24 Hours (Table) 03/21/17 18:00 Blood Culture - Preliminary Blood No Growth after 48 hours 03/21/17 13:30 Urine Culture - Final Urine,Catheterized Enterococcus faecalis Assessment and Plan Plan: Assessment: 1. Postop day #3 status post ORIF left IT hip fracture Plan: 1. Pain control, continue oral medication 2. Continue work with physical therapy, weight-bear as tolerated with walker 3. GI and DVT prophylaxis, will discharge on Xarelto 10mg 4. Daily dressing changes 5. Medical recommendations 6. Discharge planning: Plan for discharge to rehab today Time with Patient: Less than 30
--- NOTE | 2017-03-24 10:09 | P.DS ---
Providers Date of admission: 03/21/17 00:21 Expected date of discharge: 03/24/17 Attending physician: Mark Lofton Consults: 03/21/17 00:26 Consult Physician Urgent Consulting Provider: Nick Watkins Consult Reason/Comments: preop clearance Do you want consulting provider notified?: Yes 03/21/17 03:15 Consult Physician Routine Consulting Provider: Soumya Cruz Consult Reason/Comments: suicidal thoughts Do you want consulting provider notified?: Yes Primary care physician: Tariq Parra Hospital Course: Date of admission: 03/20/2017 Date of discharge: 03/24/2017 Admission diagnosis: Displaced left intertrochanteric hip fracture Discharge diagnosis: Status post open reduction internal fixation left intertrochanteric hip fracture Attending physician: Dr. Lofton Surgical procedures: Open reduction internal fixation left intertrochanteric hip fracture Brief history: Patient is a 76-year-old female who was admitted to [facility] on 03/20/2017 after being transferred down from [facility]. Patient had a trip and fall injury at her home, this did result in a displaced left intertrochanteric hip fracture. She was admitted under orthopedic care with proper specialties on consult. Hospital course: Details of patient's surgery can be found in operative report. Patient tolerated the procedure well and was subsequently transported to orthopedic floor. Patient's orthopeidc and medical care was provided daily. Patient had daily laboratory tests performed for evaluation of overall blood counts. Patient had daily physical therapy to include strengthening range of motion as well as education with walker ambulation. Patient was treated with heparin for their postoperative DVT prophylaxis during their inpatient stay. Patient was noted to have a relatively uneventful postoperative course. Patient reported satisfactory pain control with oral pain medications by postoperative day 0. Patient showed satisfactory progress with physical therapy. Patient moved steadily through the program and had no difficulty meeting the goals by postoperative day 3. Given patient's otherwise satisfactory course and having met physical therapy goals, plan is to discharge patient rehab on postoperative day 3. Discharge condition/disposition: Patient will be discharged to rehab in stable condition. Discharge medications: Instructions are given on resumption of patient's normal daily medications per primary care recommendation, in addition patient will be prescribed [place] 7.5 mg/325 mg, tramadol 50 mg, Colace 100 mg, Xarelto 10 mg. Discharge instructions: 1. Wound care and infection precautions, keep incision dry and covered while showering, no lotions, creams, moisturizers. No soaking, tubs, pools, hottubs. Do not scrub over the incision. 2. Weight-bear as tolerated with walker / cane until follow-up. 3. Ice and elevate when necessary. Do not exceed 20 minutes per hour with ice pack. 4. Utilize compression sleeve until seen at first follow up appointment. 5. Visiting nursing care. 6. Home physical therapy 7. Pain meds and anticoagulants per prescription. 8. Pain medication has potential to cause constipation. Increase oral fluid and fiber intake. Contact primary care provider if you have not had a bowel movement within 48 hours after discharge 9. No anti-inflammatory medication until discussed at first post operative visit, this including Motrin, Aleve, Mobic, Diclofenac. 10. Follow up in office at 2 weeks postop with Ian Mac PA-C 11. Follow up with your primary care doctor 7-10 days after discharge. 12. Contact [facility] with any questions, . Procedures: Open reduction internal fixation left intertrochanteric hip fracture Patient Condition at Discharge: Stable Plan - Discharge Summary Discharge Rx Participant: No New Discharge Prescriptions: New Docusate [Colace] 100 mg PO DAILY #30 capsule HYDROcodone/APAP 7.5-325MG [[place] 7.5] 1 - 2 each PO Q6HR PRN #60 tab PRN Reason: Pain Rivaroxaban [Xarelto] 10 mg PO DAILY #28 tab traMADol HCl [Ultram] 50 mg PO Q6H PRN #40 tab PRN Reason: Pain No Action Fexofenadine HCl [Patricia Allergy] 180 mg PO HS busPIRone HCl [Buspar] 5 mg PO W/LUNCH Echinacea 400 mg PO BID@1200,1700 Colon Health 1 cap PO W/LUNCH Omeprazole [PriLOSEC] 20 mg PO W/BRKFST Olmesartan [Benicar] 20 mg PO W/BRKFST LORazepam [Ativan] 1 mg PO TID Sertraline [Zoloft] 100 mg PO AC-BID Dorzolamide 2% [Trusopt 2%] 1 drops BOTH EYES DAILY Discharge Medication List Colon Health 1 cap PO W/LUNCH 03/21/17 [History] Dorzolamide 2% [Trusopt 2%] 1 drops BOTH EYES DAILY 03/21/17 [History] Echinacea 400 mg PO BID@1200,1700 03/21/17 [History] Fexofenadine HCl [Patricia Allergy] 180 mg PO HS 03/21/17 [History] LORazepam [Ativan] 1 mg PO TID 03/21/17 [History] Olmesartan [Benicar] 20 mg PO W/BRKFST 03/21/17 [History] Omeprazole [PriLOSEC] 20 mg PO W/BRKFST 03/21/17 [History] Sertraline [Zoloft] 100 mg PO AC-BID 03/21/17 [History] busPIRone HCl [Buspar] 5 mg PO W/LUNCH 03/21/17 [History] Docusate [Colace] 100 mg PO DAILY #30 capsule 03/24/17 [Rx] HYDROcodone/APAP 7.5-325MG [[place] 7.5] 1 - 2 each PO Q6HR PRN #60 tab 03/24/17 [ Rx] Rivaroxaban [Xarelto] 10 mg PO DAILY #28 tab 03/24/17 [Rx] traMADol HCl [Ultram] 50 mg PO Q6H PRN #40 tab 03/24/17 [Rx] Follow up Appointment(s)/Referral(s): Danya Blakely, [NON-STAFF] - As Needed Tariq Parra MD [Primary Care Provider] - 1-2 days Fabrice Mac PAC [PHYSICIAN BALANCE ENGINEER] - 2 Weeks Activity/Diet/Wound Care/Special Instructions: Orthopedic Discharge Instructions: 1. Wound care and infection precautions, keep incision dry and covered while showering, no lotions, creams, moisturizers. No soaking, pools, hot tubs. Do not scrub over incision. 2. Weight-bear as tolerated with walker / cane until follow-up. 3. Ice and elevate when necessary. Do not exceed 20 minutes per hour with ice pack. 4. Utilize compression sleeve until seen at first follow up appointment. 5. Visiting nursing care. 6. Home physical therapy. 7. Pain meds and anticoagulants per prescription. 8. Pain medication has potential to cause constipation. Increase oral fluid and fiber intake. Contact primary care provider if you have not had a bowel movement within 48 hours after discharge. 9. No anti-inflammatory medication until discussed at first post operative visit, this including Motrin, Aleve, Mobic, Diclofenac. 10. Follow up in office at 2 weeks postop with Ian Mac PA-C 11. Follow up with your primary care doctor 7-10 days after discharge. 12. Contact [facility] with any questions, . Discharge Disposition: TRANSFER TO SNF/ECF
[2017-03-24] MEDS: DORZOLAMIDE 2% OPHTHALMIC SCH (10:15)
[2017-03-24] MEDS: busPIRone HCl 5 MG TAB PO SCH (11:53)
[2017-03-24] MEDS ORDERED: LEVOFLOXACIN 500MG-D5W PMX 500 MG in DEXTROSE/WATER 1 100ML.BAG IVPB STA (12:49)
--- NOTE | 2017-03-24 12:50 | P.PN ---
Subjective Progress Note Date: 03/23/17 Progress note being dictated for Dr. Mason Interval history: This a 76-year-old female status post open reduction internal fixation of left intertrochanteric femur fracture and multiple other medical issues. Good diet intake with no nausea vomiting. Passing flatus, positive bowel movement. Evaluated by psychiatry with recommendations noted including suicide precautions discontinued. Denies chest pain, palpitations or increasing shortness of breath. Sitting up in chair, denies focal deficits, no lightheadedness dizziness or blurred vision. Objective - Vital Signs Vital signs: Vital Signs Temp 97.9 F 03/23/17 15:18 Pulse 78 03/23/17 15:18 Resp 16 03/23/17 15:18 BP 130/66 03/23/17 15:18 Pulse Ox 94 L 03/23/17 15:18 Intake & Output 03/23/17 03/23/17 03/24/17 06:59 18:59 06:59 Intake Total 480 500 Output Total 1050 250 Balance -570 250 Intake: Oral 480 500 Output: Urine 1050 250 Uretheral (Petit) 250 Other: Voiding Method Indwelling Catheter - Exam PHYSICAL EXAM: VITAL SIGNS: As above GENERAL: Sitting up in chair, no acute distress, visiting with daughter at bedside HEENT: Conjunctivae normal. eyes normal. Oral mucosa moist NECK: No JVD. No thyroid enlargement. No LNs CARDIOVASCULAR: S1, S2 muffled. No murmur RESPIRATION: Breath sounds diminished in the bases. No rhonchi or crackles. No bronchial breathing. ABDOMEN: Soft, nontender . No guarding. no masses palpable.Bowel sounds heard. LEGS: No edema. no swelling PSYCHIATRY: Alert and oriented -3, mood and affect normal. NERVOUS SYSTEM: Cranial N 2-12 grossly normal. Moves all 4 limbs. Diffuse weakness No focal deficits. Skin: no ulcer no rash - Labs CBC & Chem 7: 03/24/17 06:58 03/24/17 06:58 Labs: Abnormal Lab Results - Last 24 Hours (Table) 03/23/17 03/23/17 Range/Units 07:04 07:04 Hgb 11.2 L (11.4-16.0) gm/dL MCHC 30.6 L (31.0-37.0) g/dL Plt Count 140 L (150-450) k/uL Lymphocytes # 0.6 L (1.0-4.8) k/uL BUN 21 H (7-17) mg/dL Glucose 106 H (74-99) mg/dL Microbiology - Last 24 Hours (Table) 03/21/17 13:30 Urine Culture - Final Urine,Catheterized Enterococcus faecalis 03/21/17 18:00 Blood Culture - Preliminary Blood No Growth after 24 hours Assessment and Plan Assessment: 1. Left hip fracture status post open reduction internal fixation 2. Leukocytosis, resolved 3. Thrombocytopenia resolved 4. History of DVT 5. Hypertension 6. Depression, recent of spouse-last summer 7. Acute UTI with cx pending Plan: Continue on current medication regime ,monitoring and symptomatic treatment. Aggressive pulmonary toileting reinforced. PT/OT. Discharge planning in progress for [facility] ECF tomorrow as per orthopedics. The impression and plan of care has been dictated as directed. : I performed a history and examination of this patient, discussed the same with the dictator. I agree with the dictator's note ,documented as a scribe. Any additional findings or plans will be noted.
--- NOTE | 2017-03-24 13:00 | P.PN ---
Subjective Progress Note Date: 03/24/17 Progress note being dictated for Dr. Mason Interval history: This a 76-year-old female status post open reduction internal fixation of left intertrochanteric femur fracture and multiple other medical issues. Good diet intake with no nausea vomiting. Passing flatus, positive bowel movement. Evaluated by psychiatry with recommendations noted including suicide precautions discontinued. Denies chest pain, palpitations or increasing shortness of breath. Sitting up in chair, denies focal deficits, no lightheadedness dizziness or blurred vision. 03/24/17 No overnight events. Sitting up in chair. Good diet intake with no nausea vomiting. Positive bowel movement. Denies chest pain, palpitations. Urine culture reporting enterococcus faecalis, maintained on antibiotics. Afebrile, normal WBC. Objective - Vital Signs Vital signs: Vital Signs Temp 97.7 F 03/24/17 07:31 Pulse 62 03/24/17 07:31 Resp 16 03/24/17 07:31 BP 150/77 03/24/17 07:31 Pulse Ox 100 03/24/17 07:31 Intake & Output 03/23/17 03/24/17 03/24/17 18:59 06:59 18:59 Intake Total 500 350 Output Total 250 Balance 250 350 Intake: Oral 500 350 Output: Urine 250 Uretheral (Petit) 250 Other: # Voids 3 # Bowel Movements 1 - Exam PHYSICAL EXAM: VITAL SIGNS: As above GENERAL: Sitting up in chair, no acute distress HEENT: Conjunctivae normal. eyes normal. Oral mucosa moist NECK: No JVD. No thyroid enlargement. No LNs CARDIOVASCULAR: S1, S2 muffled. No murmur RESPIRATION: Breath sounds diminished in the bases. No rhonchi or crackles ABDOMEN: Soft, nontender . No guarding. no masses palpable.Bowel sounds heard. LEGS: No edema. no swelling PSYCHIATRY: Alert and oriented -3, mood and affect normal. NERVOUS SYSTEM: Cranial N 2-12 grossly normal. Moves all 4 limbs. Diffuse weakness No focal deficits. - Labs CBC & Chem 7: 03/24/17 06:58 03/24/17 06:58 Labs: Abnormal Lab Results - Last 24 Hours (Table) 03/24/17 03/24/17 Range/Units 06:58 06:58 RBC 3.76 L (3.80-5.40) m/uL Hgb 10.4 L (11.4-16.0) gm/dL MCHC 29.5 L (31.0-37.0) g/dL RDW 15.6 H (11.5-15.5) % Lymphocytes # 0.8 L (1.0-4.8) k/uL Glucose 102 H (74-99) mg/dL Microbiology - Last 24 Hours (Table) 03/21/17 18:00 Blood Culture - Preliminary Blood No Growth after 48 hours 03/21/17 13:30 Urine Culture - Final Urine,Catheterized Enterococcus faecalis Assessment and Plan Assessment: 1. Left hip fracture status post open reduction internal fixation 2. Leukocytosis, resolved 3. Thrombocytopenia resolved 4. History of DVT 5. Hypertension 6. Depression, recent of spouse-last summer 7. Acute UTI with enterococcus faecalis Plan: Continue on current medication regime ,monitoring and symptomatic treatment. Discharge planning in progress today as per orthopedics. Pain management/anticoagulation as per Primary service-orthopedics. Aggressive pulmonary toileting reinforced. The impression and plan of care has been dictated as directed. : I performed a history and examination of this patient, discussed the same with the dictator. I agree with the dictator's note ,documented as a scribe. Any additional findings or plans will be noted.
[2017-03-24] MEDS ORDERED: NITROFURANTOIN MONOHYD/M-CRYST 100 MG CAP PO SCH (13:30)
[2017-03-24 16:20] VITALS: BP 148/72; PULSE 69; TEMP 97.9
== END 2017-03-24 16:46 | DRG 481 ==
LOC: SUPCPDRO 22:11 → EC 22:11 → 3SUR 03-21 00:21
PROVIDERS: ADMIT Orthopaedic Surgery; ATTEND Orthopaedic Surgery
PROC: 0QS704Z Reposition Left Upper Femur with Internal Fixation Device, Open Approach (ICD-10-PCS; principal; 2017-03-21 15:00)
DX: S72.142A Displaced intertrochanteric fracture of left femur, initial encounter for closed fracture (principal); D68.51 Activated protein C resistance; D69.6 Thrombocytopenia, unspecified; R45.851 Suicidal ideations; N39.0 Urinary tract infection, site not specified; I10 Essential (primary) hypertension; F32.9 Major depressive disorder, single episode, unspecified; B95.2 Enterococcus as the cause of diseases classified elsewhere; Z79.899 Other long term (current) drug therapy; Z88.0 Allergy status to penicillin; Z88.1 Allergy status to other antibiotic agents; Z91.041 Radiographic dye allergy status; Z90.49 Acquired absence of other specified parts of digestive tract; Z98.49 Cataract extraction status, unspecified eye; Z87.19 Personal history of other diseases of the digestive system; Z86.718 Personal history of other venous thrombosis and embolism; Y92.009 Unspecified place in unspecified non-institutional (private) residence as the place of occurrence of the external cause; W10.9XXA Fall (on) (from) unspecified stairs and steps, initial encounter
CPT/HCPCS: 36415; 71045; 73502; 80048; 80053; 81001; 85025; 85610; 87040; 87077; 87086; 87186; 93005; 96361; 96374; 99285